=== PATIENT | female | born 1955 | race African-American/Black ===

== ENCOUNTER 2020-01-03 02:32 | Emergency (ER) | payer OTHER, MEDICARE ==
[~2020-01-03] VITALS: Ht 172.7 cm; Wt 82.0 kg
[2020-01-03 04:55] LABS: BASOPHILS % 0.4 % (0.0-2.0); EOSINOPHILS % 2.2 % (0.0-5.0); HEMOGLOBIN. 8.1 g/dL (12.0-16.0); LYMPHOCYTES % 15.3 % (20.0-50.0); MEAN CORPUSCULAR HEMOGLOBIN 31.4 pg (28.0-32.0); MEAN CORPUSCULAR VOLUME 93.2 fL (81.0-99.0); MEAN PLATELET VOLUME 9.1 fl (7.4-10.4); MONOCYTES % 9.9 % (2.0-8.0); NEUTROPHILS % 72.2 % (40.0-76.0); PLATELET 288 x1000/uL (130-400); RED BLOOD CELL COUNT 2.57 mill/uL (4.2-5.4); RED CELL DISTRIBUTION WIDTH 17.1 % (11.6-14.6)
[2020-01-03 05:01] LABS: CHLORIDE 93 mEq/L (98-107)
[2020-01-03] MEDS ORDERED: DIATR MEGLU/DIATRIZOATE SOLN 30ML ONE (08:23)
[2020-01-03] MEDS ORDERED: LEVOFLOXACIN 750MG PREMIX 150 ML IV ONE (11:30)
[2020-01-03 13:30] VITALS: BP 141/81
== END 2020-01-03 13:35 | disposition home or self-care (01) ==
LOC: ER 02:32
DX: R10.84 Generalized abdominal pain (principal); I10 Essential (primary) hypertension; F12.10 Cannabis abuse, uncomplicated; D63.0 Anemia in neoplastic disease; Z93.3 Colostomy status; Z85.028 Personal history of other malignant neoplasm of stomach; Z88.0 Allergy status to penicillin
CPT/HCPCS: 36415; 71045; 74176; 74177; 80053; 83690; 83880; 84484; 85025; 93005; 99285; Q9963